=== PATIENT | male | born 1965 | race Caucasian/White ===

== ENCOUNTER 2017-03-20 12:38 | Emergency (ER) | payer OTHER ==
--- NOTE | ~2017-03-20 | CT71 ---
[facility] A Service of [facility] RADIOLOGY TEXT RESULTS PATIENT: LASHAE MILLS LOCATION: [facility] : 65 UNIT #: [id number] AGE: [address]: José Nair DO SEX: M ORDER DR: [id number] [facility] [address] [place], [place] [address] [id number] MR#: [id number] Acc #: [id number] NAME: LASHAE MILLS : 1965 SEX: M STUDY DATE/TIME: 03/20/2017 13:49 UNIT: [facility] ROOM: STUDY DESCRIPTION: CT Head Wo Contrast Attending Physician: José Nair D.O. Ordering Physician: Jessica Todd M.D. Primary Care Physician: Lang Moya D.O. MEDICAL IMAGING REPORT This report is preliminary unless electronic signature is present EXAM Head CT 03/20/2017 INDICATIONS Detox from alcohol. Seizure x2 today. History of hypertension. TECHNIQUE Axial images were obtained from the base to the vertex without contrast. This CT exam was performed with one or more of the following radiation dose reduction techniques: automatic exposure control, adjustment of mA and/or kV according to patient size, and iterative reconstruction. COMPARISON STUDIES Comparison is made with 06/27/2015. FINDINGS Ventricular size and configuration remain stable. Old encephalomalacia in the left frontal and temporal lobes is unchanged. There is subsequent ex vacuo dilatation of the left lateral ventricle. Findings are stable. There is no acute infarct or hemorrhage. There are no masses. No skull fractures are seen. Old nasal fractures are suspected as are old left-side facial fractures. IMPRESSION No acute findings in the brain. No skull fracture. Left frontotemporal encephalomalacia is unchanged. Dictated by... Scottie Fountain Jr., M.D. THIS IS AN ELECTRONICALLY VERIFIED REPORT Scottie Fountain Jr., M.D. at 03/20/2017 4:49 PM [facility] A Service of [facility] RADIOLOGY TEXT RESULTS PATIENT: LASHAE MILLS LOCATION: [facility] : 65 UNIT #: [id number] AGE: [address]: José Nair DO SEX: M ORDER DR: Vicenta TD: 03/20/2017 15:03 JOB #: [id number] MEDICAL IMAGING REPORT Page 1 of 1 COPY
[~2017-03-20 12:38] MED LIST: ASPIRINEC; ATENOLOL50 MG PO; CLARITIN10 M2 PO; DAILY MULTIVITA1 TA1 PO; DULOXETINE HCL60 MG PO; FAMOTIDINE; FLEXERIL10 MG PO; FOLIC ACID; FOLIC ACID1 MG PO; GABAPENTIN600 MG PO; LIBRIUM; LIBRIUM PO; LISINOPRIL; LOPID600 MG PO; MELOXICAM15 MG PO; MOBIC15 MG PO; MULTI-VITAMIN1 TAB; NORVASC PO; PRAVASTATIN SOD20 MG PO; PRINIVIL40 MG PO; SEROQUEL50 MG PO; THIAMINE HCL100 MG; ZYLOPRIM100 MG PO
[2017-03-20 14:05] LABS: BASOPHIL% 0.5 % (0-2.5); EOSINOPHIL% 0.8 % (0.0-7.0); HEMATOCRIT 40.2 % (38.0-50.0); HEMOGLOBIN 13.2 gm/dL (13.0-16.0); LYMPHOCYTE# 1.8 X10e3 (1.0-3.5); LYMPHOCYTE% 28.8 % (17.0-45.0); MEAN CELL VOLUME 90.5 FL (83-96); MEAN CORPUSCULAR HEMOGLOBIN 29.7 PG (28-34); MEAN CORPUSCULAR HGB CONC 32.8 g/dL (30-36); MEAN PLATELET VOLUME 6.7 FL (6.5-11.5); MONOCYTE# 0.4 X10e3 (0-1.0); MONOCYTE% 6.9 % (3.0-12.0); NEUTROPHIL# 3.9 X10e3 (1.5-7.1); PLATELET COUNT 112 X10e3 (140-420); RED BLOOD COUNT 4.44 X10e (3.90-5.60); RED CELL DISTRIBUTION WIDTH 14.9 % (11.0-15.5); WHITE BLOOD COUNT 6.1 X10e3 (4.0-10.5)
[2017-03-20 14:07] LABS: DIFF IND NO
[2017-03-20 15:00] LABS: BUN/CREATININE RATIO 18.75; CALCIUM SERUM 8.7 mg/dL (8.4-10.2); CREATININE SERUM 0.8 mg/dL (0.6-1.4); GLOM FILT RATE Estimated 103.5 mL/min (>60); POTASSIUM 3.8 mmol/L (3.5-5.1)
[2017-03-20 15:53] LABS: POC - CKMB 5.5 ng/mL (0.0-7.9); POC - TROPONIN <0.05 ng/mL (<=0.05)
[2017-03-20 17:23] LABS: AMPHETAMINE NEG (NEG); BARBITURATES NEG (NEG); BENZODIAZEPINES NEG (NEG); COCAINE NEG (NEG); MARIJUANA NEG (NEG); OPIATES NEG (NEG); TRICYCLIC ANTIDEPRESSANTS NEG (NEG); U METHADONE NEG (NEG)
[2017-03-21 00:31] LABS: URINE SOURCE CLEAN CATCH
[2017-03-21 00:36] LABS: URINE APPEARANCE CLEAR; URINE BILIRUBIN NEG (NEG); URINE BLOOD NEG (NEG); URINE COLOR YELLOW; URINE GLUCOSE NEG (NEG); URINE KETONE NEG (NEG); URINE LEUKOCYTE ESTERASE NEG (NEG); URINE NITRATE NEG (NEG); URINE PROTEIN NEG (NEG); URINE SPECIFIC GRAVITY 1.009 (1.003-1.035)
[2017-03-21 00:42] LABS: CULTURE INDICATED? NO
[2017-03-21 04:17] LABS: BASOPHIL% 0.3 % (0-2.5); EOSINOPHIL# 0.1 X10e3 (0-0.7); EOSINOPHIL% 1.4 % (0.0-7.0); HEMATOCRIT 39.9 % (38.0-50.0); HEMOGLOBIN 13.2 gm/dL (13.0-16.0); LYMPHOCYTE# 1.9 X10e3 (1.0-3.5); LYMPHOCYTE% 34.7 % (17.0-45.0); MEAN CELL VOLUME 89.9 FL (83-96); MEAN CORPUSCULAR HEMOGLOBIN 29.8 PG (28-34); MEAN CORPUSCULAR HGB CONC 33.2 g/dL (30-36); MEAN PLATELET VOLUME 6.7 FL (6.5-11.5); MONOCYTE# 0.5 X10e3 (0-1.0); MONOCYTE% 9.4 % (3.0-12.0); NEUTROPHIL% 54.2 % (40-75); PLATELET COUNT 102 X10e3 (140-420); RED BLOOD COUNT 4.43 X10e (3.90-5.60); RED CELL DISTRIBUTION WIDTH 14.7 % (11.0-15.5); WHITE BLOOD COUNT 5.5 X10e3 (4.0-10.5)
[2017-03-21 04:20] LABS: DIFF IND NO
[2017-03-21 04:41] LABS: BUN/CREATININE RATIO 16.66; CALCIUM SERUM 8.9 mg/dL (8.4-10.2); CREATININE SERUM 0.9 mg/dL (0.6-1.4); GLOM FILT RATE Estimated 98.5 mL/min (>60); POTASSIUM 3.8 mmol/L (3.5-5.1)
== END 2017-03-21 09:00 | disposition short-term general hospital (02) ==
LOC: CED 12:38
PROVIDERS: Emergency Medicine
DX: F10.129 Alcohol abuse with intoxication, unspecified (principal); I10 Essential (primary) hypertension
CPT/HCPCS: 70450; 80048; 80307; 81003; 82553; 84484; 85025; 99285; G0480

== ENCOUNTER 2017-03-21 09:33 | Inpatient (IN) | payer OTHER ==
--- NOTE | ~2017-03-21 | PN ---
Unit #: [id number] #: [id number] Patient: VALENTINA EPSTEIN [id number] [facility] [address] [place] [address] [id number] MR#: [id number] NAME: VALENTINA EPSTEIN ROOM: [facility] Age: 51 Sex: M Admission Date: 03/21/2017 : 1965 Attending Physician: Albania Marmolejo M.D. Admitting Physician: Albania Marmolejo M.D. Primary Care Physician: Maryjo Champion PROGRESS NOTES DATE OF SERVICE 03/26/2017 DISCUSSION Mr. Epstein is a 51-year-old white male with alcohol dependence who was seen today. Chart was reviewed and case was discussed with staff who reports the patient seems to be doing somewhat better and appears to be coming out of delirium tremens though still has maintained very bizarre behavior. Meanwhile, he has been taking the medications and tolerating them fairly well with no reported side effects. MENTAL STATUS EXAMINATION Middle-aged white male who is casually dressed with fair personal hygiene, appears to be in no acute distress or discomfort. The patient was awake and alert on interaction with intact orientation. His mood is anxious with congruent affect. He denies any suicidal or homicidal ideations. His insight and judgment remain slightly impaired. TREATMENT PLAN 1. We will continue him on his current medications and treatment protocol. We will monitor his response and make further adjustments as needed. 2. We will continue to follow up. Dictated by... Elisabeth Carlos/jonnie TD: 03/26/2017 13:55 JOB #: [id number] Unit #: [id number] #: [id number] Patient: VALENTINA EPSTEIN PROGRESS NOTES Page 1 of 1 X Albania Marmolejo MD PROGRESS NOTE
--- NOTE | ~2017-03-21 | CO ---
Unit #: [id number] #: [id number] Patient: VALENTINA EPSTEIN [id number] [facility] [address] [place] [address] [id number] MR#: [id number] NAME: VALENTINA EPSTEIN ROOM: [facility] Age: 51 Sex: M Admission Date: 03/21/2017 : 1965 Attending Physician: Albania Marmolejo M.D. Primary Care Physician: Lang Moya D.O. Consultation Date: 03/21/2017 CONSULTATION REPORT ORDERING PROVIDER Dr. Marmolejo. REASON FOR CONSULTATION Foot fungus. SUBJECTIVE The patient is unsure how long he has had the infection on his feet. It is bilateral. It is mildly itchy and unsightly, but not otherwise uncomfortable for the patient. OBJECTIVE The patient is noted to have fungus underneath all of his toenails on both feet. It does not extend to his heel or even shaft of the digits. ASSESSMENT Tinea pedis. PLAN Plan is to do ketoconazole cream. The patient was advised that the infection is unlikely to be cleared by a topical medication; however, he is not a candidate for the oral medication due to his alcoholism and the fact that the oral medication is broken down in the liver. The patient voiced understanding and is willing to try the topical medicine. Dictated by... Zoe Solis/kirit TD: 03/21/2017 18:31 JOB #: [id number] Unit #: [id number] #: [id number] Patient: VALENTINA EPSTEIN CONSULTATION REPORT Page 1 of 1 X ANNABEL ALEXIS APRN CONSULTATION REPORT
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
--- NOTE | ~2017-03-21 | PN ---
Unit #: [id number] #: [id number] Patient: VALENTINA EPSTEIN [id number] [facility] [address] [place] [address] [id number] MR#: [id number] NAME: VALENTINA EPSTEIN ROOM: [facility] Age: 51 Sex: M Admission Date: 03/21/2017 : 1965 Attending Physician: Albania Marmolejo M.D. Admitting Physician: Albania Marmolejo M.D. Primary Care Physician: Maryjo Champion PROGRESS NOTES DATE OF SERVICE 03/25/2017 DISCUSSION Mr. Epstein is a 51-year-old white male who was seen today. Chart was reviewed and case was discussed with the staff. He has been anxious, withdrawn, and rather seclusive to himself. Meanwhile, he has been cooperative with the treatment recommendations and has been taking the medications and tolerating them fairly well with no reported side effects. MENTAL STATUS EXAMINATION Middle-aged white male who is casually dressed with fair personal hygiene, appears to be in no acute distress or discomfort. The patient was awake and alert on interaction with intact orientation. His mood is anxious with congruent affect. Speech is slow and restricted in content. He denies any suicidal or homicidal ideations and also denies any auditory or visual hallucinations. His insight and judgment remain slightly impaired. TREATMENT PLAN 1. We will continue him on his current medications and treatment protocol. We will monitor his response to the medications and make further adjustments as needed. 2. We will continue to follow up. Dictated by... Elisabeth Carlos/jonnie TD: 03/25/2017 10:41 JOB #: [id number] Unit #: [id number] #: [id number] Patient: VALENTINA EPSTEIN PROGRESS NOTES Page 1 of 1 X Albania Marmolejo MD PROGRESS NOTE
--- NOTE | ~2017-03-21 | DS ---
Unit #: [id number] #: [id number] Patient: VALENTINA EPSTEIN [id number] [place] [address] [id number] I MR#: [id number] NAME: VALENTINA EPSTEIN ROOM: 74 Age: 51 Sex: M Admission Date: 03/21/2017 : 1965 Discharge Date: 03/27/2017 Attending Physician: Albania Marmolejo M.D. Primary Care Physician: Lang Moya D.O. DISCHARGE SUMMARY IDENTIFICATION DATA Mr. Epstein is a 51-year-old white male who is a resident of [place], [place], and was transferred to us from [facility] on a voluntary basis. DISCHARGE DIAGNOSES PSYCHIATRIC: Alcohol dependence, moderate, in acute withdrawal. Alcohol-induced mood disorder. MEDICAL: Hypertension. Dyslipidemia. STRESSORS: Moderate psychosocial stressors. HISTORY OF PRESENT ILLNESS Same as in initial psychiatric evaluation. PAST PSYCHIATRIC HISTORY Same as in initial psychiatric evaluation. PAST MEDICAL HISTORY Same as in initial psychiatric evaluation. HOSPITAL COURSE The patient was admitted to the adult psychiatric and chemical dependence unit at [facility] and was oriented to the hospital environment. Routine p.r.n. medications were initiated, and he was started back on his home medications, and alcohol detox protocol was initiated. However, soon afterwards, the patient went to full-blown delirium tremens episode with confusion, disorientation, agitation, aggression, hostility, and was maintained on one-to-one level of precautions and was getting p.r.n. medications to cut down on agitation as well. However, he was able to come out of the detox without any complications with full resolution of his delirium tremens and was wanting to go home and was willing to continue treatment on outpatient basis. As such it was decided that the patient will be discharged home. We will continue treatment on outpatient basis. DISCHARGE MEDICATIONS 1. Seroquel 25 mg a day for mood disorder. 2. Zestril 40 mg a day for hypertension. 3. Catapres 0.1 mg twice a day for hypertension. 4. Tenormin 50 mg a day hypertension. 5. Lopid 600 mg twice a day for dyslipidemia. 6. Mobic 15 mg a day for pain. Unit #: [id number] #: [id number] Patient: VALENTINA EPSTEIN CONDITION AT DISCHARGE Stable. PROGNOSIS Fair. Dictated by... Elisabeth Carlos/jonnie TD: 03/27/2017 13:34 JOB #: [id number] DISCHARGE SUMMARY Page 1 of 1 X Albania Marmolejo MD X DISCHARGE SUMMARY
--- NOTE | ~2017-03-21 | HP ---
Unit #: [id number] #: [id number] Patient: VALENTINA EPSTEIN [id number] [place] [address] [id number] I MR#: [id number] NAME: VALENTINA EPSTEIN ROOM: [facility] Age: 51 Sex: M Admission Date: 03/21/2017 : 1965 Attending Physician: Albania Marmolejo M.D. Admitting Physician: Albania Marmolejo M.D. Primary Care Physician: Lang Moya D.O. HISTORY AND PHYSICAL HISTORY OF PRESENT ILLNESS Patient is a 51-year-old male admitted to [facility] on 03/21/2017 to detox from alcohol. PAST MEDICAL HISTORY 1. Hypertension. 2. Hyperlipidemia. 3. Neck pain. 4. Tinea pedis. PAST SURGICAL HISTORY 1. Vasectomy. 2. Neck surgery. 3. Shoulder surgery. ALLERGIES No known drug allergies. SOCIAL HISTORY He is unemployed. He lives with his girlfriend. He denies tobacco or drug use but drinks one fifth of whiskey per day. FAMILY HISTORY Noncontributory. REVIEW OF SYSTEMS CONSTITUTIONAL: No fever or chills. HEENT: Denies any sore throat, ear pain or runny nose. CARDIOVASCULAR: Denies chest pain, irregular heart rhythm or palpitations. CHEST: Denies shortness of breath or cough. No hemoptysis. GASTROINTESTINAL: Denies nausea, vomiting, diarrhea or chronic constipation. ENDOCRINE: Denies history of increased thirst or urination. No recent significant weight loss or gain. GENITOURINARY: Denies dysuria, frequency, or hematuria. SKIN: Denies any rashes. HEMATOLOGIC: Denies history of increased bleeding or bruising. MUSCULOSKELETAL: Denies any hot, swollen joints. No generalized muscle pain. NEUROLOGIC: He feels very shaky and fears seizure. CURRENT MEDICATIONS 1. Seroquel. Unit #: [id number] #: [id number] Patient: VALENTINA EPSTEIN 2. Flexeril. 3. Mobic. 4. Lisinopril. 5. Clonidine. 6. Atenolol. 7. Gemfibrozil. PHYSICAL EXAMINATION GENERAL: He is awake, alert, oriented, in no acute distress. VITAL SIGNS: Temperature 98.0, respirations 16, blood pressure 140/90, heart rate 90. HEIGHT: 5 feet 11. WEIGHT: 185 pounds. SKIN: Warm and dry without rash or lesion. HEENT: Normocephalic. TMs not viewed. Oral and nasal passages clear. Conjunctivae clear. PERRLA. EOMs intact. NECK: Supple without lymphadenopathy or thyromegaly. HEART: Regular rate and rhythm without murmur. LUNGS: Clear. ABDOMEN: Soft, nontender. : Not done. EXTREMITIES: No evidence of cyanosis, clubbing or edema. Moves all without focal deficit. NEUROLOGICAL: He has a tremor. Cranial Nerves: II: Visual sharma are intact. III, IV AND : Extraocular movements are intact. Pupils are equal, round and reactive to light. V: Facial sensation is grossly normal. VII: Facial movements and expression are normal. VIII: Auditory acuity grossly intact. IX, X: Uvula is midline. Phonation is normal. XI: Patient shrugs shoulders and turns head normally. XII: Tongue protrudes in the midline. Sensory and Motor Function: Sensory and motor sensation is grossly normal. Motor: moves all extremities well. Coordination: Gait is normal. Deep Tendon Reflexes: Intact. IMPRESSION 1. Psychiatric admission. 2. Alcohol dependence. 3. Hypertension. 4. Hyperlipidemia. 5. Neck pain. 6. Tinea pedis. RECOMMENDATIONS PSYCHIATRIC: Per psychiatrist. MEDICAL: No contraindications to participate in facility's activities. MEDICAL PROGNOSIS Fair. MEDICAL CONDITION Stable. Dictated by... Unit #: [id number] #: [id number] Patient: TETEVALENTINA A.P.R.N. EF/pedro TD: 03/21/2017 16:54 JOB #: [id number] HISTORY AND PHYSICAL Page 1 of 1 X ANNABEL ALEXIS APRN X HISTORY AND PHYSICAL
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
--- NOTE | ~2017-03-21 | PN ---
Unit #: [id number] #: [id number] Patient: VALENTINA EPSTEIN [id number] [facility] [address] [place] [address] [id number] MR#: [id number] NAME: VALENTINA EPSTEIN ROOM: 74 Age: 51 Sex: M Admission Date: 03/21/2017 : 1965 Attending Physician: Albania Marmolejo M.D. Admitting Physician: Albania Marmolejo M.D. Primary Care Physician: Maryjo Champion NOTES DATE OF SERVICE: 03/22/2017 SUBJECTIVE Mr. Epstein is a 51-year-old white male with substance abuse and mood disorder, who was seen today and chart was reviewed, and case was discussed with the staff. He reports the patient has not been doing good and appears to be going into delirium tremens like episode and has been kept on one-to-one level of precaution, and has received p.r.n. medications and has not been functioning very well, and remained confused, sedated, anxious, restless, withdrawn, and able to function or take care of himself with his personal hygiene. We will maintain him on his current medications and level of precautions. We will monitor his response and make further adjustments as needed. Dictated by... Albania Marmolejo M.D. IAA/nenital TD: 03/22/2017 11:07 JOB #: [id number] DAISY OVIEDO NOTES Page 1 of 1 X Albania Marmolejo MD PROGRESS NOTE
--- NOTE | ~2017-03-21 | PN ---
Unit #: [id number] #: [id number] Patient: VALENTINA EPSTEIN [id number] [facility] [address] [place] [address] [id number] MR#: [id number] NAME: VALENTINA EPSTEIN ROOM: 74 Age: 51 Sex: M Admission Date: 03/21/2017 : 1965 Attending Physician: Albania Marmolejo M.D. Admitting Physician: Albania Marmolejo M.D. Primary Care Physician: Maryjo Champion PROGRESS NOTES DATE 03/24/2017 DISCUSSION White male who was seen today and chart was reviewed and case was discussed with the staff who report patient has been very difficult as he has been in the midst of acute delirium tremens and has been getting violent and agitated and aggressive and has been confused, disoriented and actively hallucinating and has been maintained on one-to-one level of precautions and he does not know where he is at and has been wandering around putting stuff in brown bags and carrying it around and getting agitated and aggressive towards staff members and has been on one-to-one level of precautions at all times and as such will recommend maintaining him on his current detox level of precautions and his medications were monitored and make further adjustments as needed. Dictated by... Albania Marmolejo M.D. IAA/pedro TD: 03/24/2017 17:30 JOB #: [id number] DAISY PROGRESS NOTES Page 1 of 1 X Albania Marmolejo MD X PROGRESS NOTE
[2017-03-22 16:10] LABS: BASOPHIL% 0.3 % (0-2.5); EOSINOPHIL# 0.1 X10e3 (0-0.7); HEMATOCRIT 35.9 % (38.0-50.0); LYMPHOCYTE# 1.3 X10e3 (1.0-3.5); LYMPHOCYTE% 21.9 % (17.0-45.0); MEAN CELL VOLUME 89.8 FL (83-96); MEAN CORPUSCULAR HGB CONC 33.4 g/dL (30-36); MEAN PLATELET VOLUME 7.8 FL (6.5-11.5); MONOCYTE# 0.7 X10e3 (0-1.0); NEUTROPHIL% 65.8 % (40-75); RED CELL DISTRIBUTION WIDTH 14.8 % (11.0-15.5); WHITE BLOOD COUNT 6.1 X10e3 (4.0-10.5)
[2017-03-22 16:31] LABS: DIFF IND YES; PLATELET COUNT 97 X10e3 (140-420)
[2017-03-22 16:34] LABS: PLATELET ESTIMATE DECREASED (NORMAL)
[2017-03-22 16:35] LABS: ANISOCYTOSIS SL
[2017-03-22 16:48] LABS: BILIRUBIN,TOTAL 1.4 mg/dL (0.2-2.0); BUN/CREATININE RATIO 12.5; CREATININE SERUM 1.2 mg/dL (0.6-1.4); GLOM FILT RATE Estimated 69.6 mL/min (>60); POTASSIUM 3.4 mmol/L (3.5-5.1); PROTEIN TOTAL SERUM 6.3 g/dL (6.0-8.3)
[2017-03-25 09:34] LABS: URINE BILIRUBIN NEG (NEG); URINE BLOOD NEG (NEG); URINE COLOR YELLOW; URINE GLUCOSE NEG (NEG); URINE KETONE NEG (NEG); URINE LEUKOCYTE ESTERASE NEG (NEG); URINE NITRATE NEG (NEG); URINE PROTEIN NEG (NEG); URINE SPECIFIC GRAVITY 1.014 (1.003-1.035); URINE UROBILINOGEN 0.2 MG/DL (NEG)
[2017-03-25 09:47] LABS: URINE APPEARANCE CLEAR
[2017-03-25 09:55] LABS: AMPHETAMINE NEG (NEG); BARBITURATES NEG (NEG); BENZODIAZEPINES POS (NEG); COCAINE NEG (NEG); MARIJUANA NEG (NEG); OPIATES NEG (NEG); TRICYCLIC ANTIDEPRESSANTS POS (NEG); U METHADONE NEG (NEG)
== END 2017-03-27 10:00 | disposition home or self-care (01) | DRG 897 ==
LOC: P1E 09:33
PROVIDERS: Psychiatry & Neurology Psychiatry
PROC: HZ2ZZZZ Detoxification Services for Substance Abuse Treatment (ICD-10-PCS; principal; 2017-03-21)
DX: F10.239 Alcohol dependence with withdrawal, unspecified (principal); F10.24 Alcohol dependence with alcohol-induced mood disorder; I10 Essential (primary) hypertension; Z56.0 Unemployment, unspecified; E78.5 Hyperlipidemia, unspecified
CPT/HCPCS: 80053; 80307; 81003; 82947; 85025; 86592; J2060; J3486